=== PATIENT | male | born 1940 | race Caucasian/White ===

== ENCOUNTER → 2020-04-17 | Outpatient (CLI) | payer OTHER ==
[~2020-04-17] MED LIST: ASPIR 8181 MG PO; BRILINTA 90 MG90 MG GT; BRILINTA 90 MG90 MG PO; CRESTOR20 MG PO; FUROSEMIDE20 MG PO; ISORDIL TAB 3030 MG PO; LISINOPRIL-HCT1 EAC2 PO; LOPRESSOR 25 MG25 MG PO; LOPRESSOR50 MG PO; METOPROLOL TART25 MG PO; NITROSTAT0.4 MG SL; PROTONIX40 MG PO; RANEXA1000 MG PO; SYMBICORT 160-1 INHA INH; TESSALON PERLE100 MG PO
== END ==
LOC: KOH-I 11:30
DX: N18.30 Chronic kidney disease, stage 3 unspecified (principal); N13.30 Unspecified hydronephrosis
CPT/HCPCS: 76775

== ENCOUNTER → 2020-06-02 | Outpatient (CLI) | payer OTHER | LOC: CT 05-26 14:30 | DX: N13.30 Unspecified hydronephrosis (principal); N28.1 Cyst of kidney, acquired | CPT/HCPCS: 36415; 82565; Q9965 ==